=== PATIENT | female | born 1965 | race Caucasian/White ===

== ENCOUNTER 2019-02-04 09:00 | Outpatient (AMBR) | payer MEDICARE, MEDICAID, SELFPAY ==
--- NOTE | 2019-01-14 10:13 | PT.OIERPT ---
PT OP Initial Eval Patient Information Visit Reasons: shoulder pain Medical Diagnosis: M13.812 Treatment Dx #1: Left Shoulder Pain Start of Care: 01/14/19 Date of Onset: 3 months ago Initial Assessment Subjective Pt is a 53 y/o female c/o left shoulder pain (03/16) started 3 months ago. Pt mention that she did fall 3 months ago but shoulder felt fine at the time. Pt's recent xray found OA at the AC joint but no MRI thus far. Pt has difficulty with overhead motions, lifting, chores, cooking, cleaning, reaching behind her back, and self care activities Objective Left Shoulder AROM Flexion: 180 deg with pain Abduction: 180 deg with pain External Rotation: 90 deg with pain Internal Rotation: 70 deg with pain Left Shoulder MMTs: grossly 3/5 Left Scapula MMTs: grossly 3-/5 Special Test (+) Hawkin-Abhi Palpation: TTP suprapinatus tendon Assessment Pt demonstrate left shoulder pain consistent with primary impingement from AC joint OA leading to decline function. Pt will attempt physical therapy if pain persist Pt will be refer back to PCP Short Term and Mixer And Scaler Goals 1) Increase shoulder AROM WNL with minimal pain in 6 wks to be able to perform overhead motions 2) Increase shoulder MMTs to 4-/5 in 6 wks to be able to perform chores 3) Increase scapula MMTs to 3+/5 in 6 wks to be able to perform lifting activities 4) Decrease shoulder pain to 2/10 in 6 wks to be able to sleep more than 6 hrs 5) Indep with HEP Treatment Plan 1) Manual Therapy 2) Therapeutic Activities 3) Therapeutic Exercises 4) Modalities (ice, heat, estim) Frequency and Duration 2 x wk for 6 wks Certification Dates: 01/14/19 to 04/16/19 Office Procedures PT Procedures PT Date of Service: 01/14/19 OP PT Eval Mod Complex 30 minutes: Yes
--- NOTE | 2019-01-14 10:19 | PTNOTE_ITS ---
PT OP Initial Eval Patient Information Visit Reasons: shoulder pain Medical Diagnosis: M13.812 Treatment Dx #1: Left Shoulder Pain Start of Care: 01/14/19 Date of Onset: 3 months ago Initial Assessment Subjective Pt is a 53 y/o female c/o left shoulder pain (03/16) started 3 months ago. Pt mention that she did fall 3 months ago but shoulder felt fine at the time. Pt's recent xray found OA at the AC joint but no MRI thus far. Pt has difficulty with overhead motions, lifting, chores, cooking, cleaning, reaching behind her back, and self care activities Objective Left Shoulder AROM Flexion: 180 deg with pain Abduction: 180 deg with pain External Rotation: 90 deg with pain Internal Rotation: 70 deg with pain Left Shoulder MMTs: grossly 3/5 Left Scapula MMTs: grossly 3-/5 Special Test (+) [place]-Abhi Palpation: TTP suprapinatus tendon Assessment Pt demonstrate left shoulder pain consistent with primary impingement from AC joint OA leading to decline function. Pt will attempt physical therapy if pain persist Pt will be refer back to PCP Short Term and Examiner Rating Clerk Goals 1) Increase shoulder AROM WNL with minimal pain in 6 wks to be able to perform overhead motions 2) Increase shoulder MMTs to 4-/5 in 6 wks to be able to perform chores 3) Increase scapula MMTs to 3+/5 in 6 wks to be able to perform lifting activit ies 4) Decrease shoulder pain to 2/10 in 6 wks to be able to sleep more than 6 hrs 5) Indep with HEP Treatment Plan 1) Manual Therapy 2) Therapeutic Activities 3) Therapeutic Exercises 4) Modalities (ice, heat, estim) Frequency and Duration 2 x wk for 6 wks Certification Dates: 01/14/19 to 04/16/19 Office Procedures PT Procedures PT Date of Service: 01/14/19 OP PT Eval Mod Complex 30 minutes: Yes
--- NOTE | 2019-01-17 11:43 | PT.ODAYNRPT ---
PT Outpatient Daily Note Date of Service: January 17, 2019 OP Daily Note Visit Reasons: shoulder pain Outpatient Physical Therapy Treatment Date: 01/17/19 Subjective: Pt' shoulder feels the same. Pt still notice pain with overhead motions. Objective: Please see flow chart for list of ther ex performed Assessment: tolerate exercises with minimal pain; frequent cues to correct band exercises Plan: Continue with PT Length of Time (minutes) of Treatment: 30 Minutes Office Procedures PT Procedures PT Date of Service: 01/14/19 OP PT Eval Mod Complex 30 minutes: Yes PT Procedures PT Date of Service: 01/17/19 Therapeutic Exercise 30 minutes: Yes
--- NOTE | 2019-01-21 11:53 | PT.ODAYNRPT ---
PT Outpatient Daily Note Date of Service: January 21, 2019 OP Daily Note Visit Reasons: shoulder pain Outpatient Physical Therapy Treatment Date: 01/21/19 Subjective: Pt's shoulder was sore after last treatment session. Pt mention that she still has pain and seems worse after therapy session Objective: Please see flow chart for list of ther ex performed Assessment: tolerate exercises today, minimal pain at end range scaption finger ladder exercise Plan: Continue with PT Length of Time (minutes) of Treatment: 30 Minutes Office Procedures PT Procedures PT Date of Service: 01/14/19 OP PT Eval Mod Complex 30 minutes: Yes PT Procedures PT Date of Service: 01/17/19 Therapeutic Exercise 30 minutes: Yes PT Procedures PT Date of Service: 01/21/19 Therapeutic Exercise 30 minutes: Yes
--- NOTE | 2019-02-04 10:41 | PT.ODS1RPT ---
PT OP Progress/Discharge Note Date of Service: February 04, 2019 Progress Note/DC Note Progress Note/Discharge Note: DC Note Patient Information Visit Reasons: shoulder pain Medical Diagnosis: M13.812 Treatment Dx #1: Left Shoulder Pain Service Continue Service or Discharge: Discharge Discharge Date: 02/04/19 Status Subjective: Pt mention that she continues to have shoulder pain (7/10) with all activities. Pt still has limitation with lifting, overhead motions, chores, self care, and cooking. Pt feels that physical therapy is not helping with the pain. Objective: Left Shoulder AROM: all motions are WNL with end range pain in all plane Left Shoulder MMTs: grossly 3+/5 Left Scapula MMTs: 3/5 Special Test (+) Yumiko-Abhi Assessment: Pt demonstrate functional mobility and strength, however, continues to have anterolateral shoulder pain with end range AROM in all plane leading to difficulty with ADLs. Pt will no longer benefit from physical therapy due to minimal progression towards goals. Pt was instructed on HEP last session and educated to continue exercises to maintain overall mobility. Pt performed all exercises safely, thank you for your referrals. Plan: D/C home with HEP and follow up with MD Office Procedures PT Procedures PT Date of Service: 01/14/19 OP PT Eval Mod Complex 30 minutes: Yes PT Procedures PT Date of Service: 01/17/19 Therapeutic Exercise 30 minutes: Yes PT Procedures PT Date of Service: 01/21/19 Therapeutic Exercise 30 minutes: Yes PT Procedures PT Date of Service: 02/04/19 OP PT Eval Mod Complex 30 minutes: Yes
== END 2019-02-04 23:59 | disposition home or self-care (01) ==
PROVIDERS: PCP Family Medicine; Referring Provider Family Medicine; Visit Provider Physician Assistant Medical
DX: M13.812 Other specified arthritis, left shoulder (principal); M25.512 Pain in left shoulder
CPT/HCPCS: 97110; 97162